=== PATIENT | male | born 1980 ===

== ENCOUNTER 2017-05-19 22:42 | Inpatient (IN) | payer SELFPAY ==
[~2017-05-19] VITALS: Ht 177.8 cm; Wt 75.3 kg
[2017-05-19] MEDS ORDERED: ONDANSETRON 4 MG/2 ML VIAL IV ONE (23:15)
[2017-05-19] MEDS ORDERED: MORPHINE SULFATE 2 MG/1 ML DISP.SYRIN IV ONE (23:15)
[2017-05-19] MEDS ORDERED: PANTOPRAZOLE SODIUM 40 MG VIAL IV ONE (23:15)
[2017-05-19] MEDS ORDERED: IV NORMAL SALINE 1000 ML BAG IV ONE (23:15)
[2017-05-19] MEDS ORDERED: ONDANSETRON 4 MG/2 ML VIAL ONE (23:42)
[2017-05-19] MEDS ORDERED: PANTOPRAZOLE SODIUM 40 MG VIAL ONE (23:42)
[2017-05-19] MEDS ORDERED: MORPHINE SULFATE 2 MG/1 ML DISP.SYRIN ONE (23:43)
[2017-05-19] MEDS ORDERED: METRONIDAZOLE 500 MG/NS 100 ML PIGGYBACK IV ONE (23:45)
[2017-05-19] MEDS ORDERED: LEVOFLOXACIN 750 MG/D5W 150 ML PIGGYBACK IV ONE (23:45)
[2017-05-19] MEDS ORDERED: VANCOMYCIN 1G/D5W 200 ML PIGGYBACK IV ONE (23:45)
[2017-05-19] MEDS ORDERED: METRONIDAZOLE 500 MG/NS 100ML 100 ML IV ONE (23:59)
[2017-05-20 00:03] LABS: BASOPHILS % (AUTO) 0.1 % (0.0-2.0); EOSINOPHILS % (AUTO) 0.1 % (0.0-7.0); HEMATOCRIT 27.7 % (40-50); HEMOGLOBIN 9.1 G/DL (14.0-18.0); LYMPHOCYTES # (AUTO) 0.4 K/UL (0.8-4.8); LYMPHOCYTES % (AUTO) 8.6 % (20.5-51.5); MEAN CORPUSCULAR HEMOGLOBIN 27.8 UUG (27.0-31.0); MEAN CORPUSCULAR HGB CONC 33 g/dL (32.0-37.0); MEAN CORPUSCULAR VOLUME 84.6 FL (82.0-92.0); MONOCYTES # (AUTO) 0.2 K/UL (0.1-1.30); MONOCYTES % (AUTO) 4.7 % (0.0-11.0); NEUTROPHILS # (AUTO) 4.2 K/UL (1.8-8.9); NEUTROPHILS % (AUTO) 86.5 % (38.5-71.5); PLATELET COUNT (AUTO) 399 K/UL (150-450); RED BLOOD CELL COUNT(AUTO) 3.28 MIL/UL (4.7-6.1); WHITE BLOOD COUNT (AUTO) 4.8 K/UL (4.0-11.2)
[2017-05-20 00:07] LABS: CREATININE 1.1 mg/dL (0.6-1.3); POTASSIUM 3.7 mmol/L (3.5-5.1)
[2017-05-20] MEDS ORDERED: HYDROMORPHONE 2 MG/1 ML DISP.SYRIN ONE ×6 (00:08→21:05)
[2017-05-20 00:13] LABS: BILIRUBIN,DIRECT 0.1 mg/dL (0.0-0.2); BILIRUBIN,TOTAL 0.2 mg/dL (0.2-1.0); TOTAL PROTEIN, SERUM 6.8 g/dL (6.4-8.2)
[2017-05-20] MEDS ORDERED: diphenhydrAMINE 50 MG/1 ML VIAL IV ONE ×2 (00:15→02:30)
[2017-05-20] MEDS ORDERED: HYDROMORPHONE 1 MG/1 ML DISP.SYRIN IV ONE ×5 (00:15→02:45)
[2017-05-20] MEDS ORDERED: ONDANSETRON 4 MG/2 ML VIAL IV ONE (00:15)
[2017-05-20] MEDS ORDERED: ONDANSETRON 4 MG/2 ML VIAL ONE (00:29)
[2017-05-20] MEDS ORDERED: VANCOMYCIN IV 200 ML ONE (00:39)
[2017-05-20 00:40] LABS: *BILIRUBIN,URIN NEGATIVE (NEGATIVE); *BLOOD, URINE NEGATIVE (NEGATIVE); *CLARITY,URINE CLEAR (CLEAR); *COLOR,URINE YELLOW (YELLOW); *KETONES,URINE NEGATIVE (NEGATIVE); *PROTEIN,URINE NEGATIVE (NEGATIVE); *UROBILINOGEN,URINE 0.2 E.U./dl (NORMAL); LEUKOCYTE ESTERASE ,URINE NEGATIVE (NEGATIVE); NITRITE, URINE NEGATIVE (NEGATIVE); UGLUCOSE NEGATIVE (NEGATIVE)
[2017-05-20 00:45] LABS: BACTERIA,URINE NONE SEEN /HPF (NONE SEEN); RBC,URINE 0-3 /HPF (0-3); SQUAMOUS EPITHELIAL CELL,UR NONE SEEN /HPF (NONE SEEN); WBC,URINE 0-3 /HPF (0-3)
[2017-05-20] MEDS ORDERED: NORMAL SALINE FLUSH 10 ML DISP.SYRIN ONE (01:16)
[2017-05-20] MEDS ORDERED: IOHEXOL 300MG/ML 100 ML INFUS..BTL ONE (01:16)
[2017-05-20] MEDS ORDERED: IV NORMAL SALINE 250 ML IV ONE (01:16)
[2017-05-20] MEDS ORDERED: diphenhydrAMINE 50 MG/1 ML VIAL ONE (02:21)
[2017-05-20] MEDS ORDERED: IV NORMAL SALINE 1000 ML BAG IV ONE (02:30)
[2017-05-20] MEDS ORDERED: LEVOFLOXACIN 750MG/D5W 150 ML IV ONE (02:35)
--- NOTE | 2017-05-20 03:15 | NUR ---
CALL PLACED TO MOISES, HARRISON OSULLIVAN N.P. VETERINARY TECHNICIAN INSTRUCTOR.
[2017-05-20] MEDS ORDERED: ACETAMINOPHEN 325 MG TABLET PO PRN (03:30)
[2017-05-20] MEDS ORDERED: Z GUARD REMEDY PASTE 57 GM TUBE TOP PRN (03:30)
[2017-05-20] MEDS ORDERED: PIPERACILLIN/TAZOBACTAM/D5W 50 ML IV SCH (03:30)
[2017-05-20] MEDS ORDERED: MORPHINE SULFATE 2 MG/1 ML DISP.SYRIN IV PRN (03:30)
[2017-05-20] MEDS ORDERED: LORAZEPAM 2 MG/1 ML VIAL IV ONE (03:30)
[2017-05-20] MEDS ORDERED: MAGNESIUM HYDROXIDE 30 ML LIQUID UDC PO PRN (03:30)
[2017-05-20] MEDS ORDERED: LORAZEPAM 2 MG/1 ML VIAL ONE (03:38)
--- NOTE | 2017-05-20 03:42 | NUR ---
Pt. admitted to [facility] , under care of HARRISON OSULLIVAN N.P. Belongs List completed.
--- NOTE | 2017-05-20 04:15 | NUR ---
PT RECEIVED FROM ED VIA [facility]. A/OX4. ABLE TO MAKE NEEDS KNOWN. V/S STABLE. IN NO ACUTE DISTRESS. PT C/O OF ABDOMINAL PAIN 02/19 AT THIS TIME. IV INTACT/PATENT. ORIENTED TO ROOM. SAFETY MEASURE IMPLEMENTED. CALL LIGHT WITHIN REACH.
[2017-05-20] MEDS: IV 1/2NS 1000 ML 1,000 ML IV PRN ×2 (04:46→17:08)
[2017-05-20] MEDS ORDERED: MORPHINE SULFATE 2 MG/1 ML DISP.SYRIN ONE (05:21)
[2017-05-20 06:00] VITALS: BP 144/98
[2017-05-20] MEDS ORDERED: PIPERACILLIN SODIUM/TAZO 3.375 GM VIAL ONE (06:56)
--- NOTE | 2017-05-20 07:00 | NUR ---
END OF SHIFT NOTES. PT IN STABLE CONDITION. PAIN MANAGED. IVF INFUSING. IV ABX INFUSED. ENDORSED PT REQUEST FOR DIL AND BENADRYL. ENDORSED NEED FOR MRSA WOUND SWAB. ALL NEEDS ATTENDED. SAFETY MAINTAINED. CALL LIGHT WITHIN REACH.
--- NOTE | 2017-05-20 08:00 | NUR ---
AWAKE ALERT COOPERATE WELL EAT BREAKFAST MOD AMT STATE MORPHINE DOES NOT HELP TO RELIEF PAIN DR YANG WAS INFORM AND NEW ORDER IN CHART
[2017-05-20] MEDS ORDERED: HYDROMORPHONE 1 MG/1 ML DISP.SYRIN IV PRN (08:30)
--- NOTE | 2017-05-20 09:00 | NUR ---
C/O ABD WOUND PAIN MED PRN GIVEN ORDER AND WILL DO WOUND CARE DSG CHANGE LATER
[2017-05-20] MEDS: diphenhydrAMINE 50 MG/1 ML VIAL IV PRN ×4 (09:04→21:00)
[2017-05-20] MEDS: HYDROMORPHONE 2 MG/1 ML DISP.SYRIN IV PRN ×3 (09:06→17:16)
--- NOTE | 2017-05-20 11:40 | NUR ---
WOUND CULTURE SENT TO LAB REFUSED TO CLEAN AND APPLY DSG AT OPEN ABD WOUND
[2017-05-20 11:49] VITALS: BP 125/79
--- NOTE | 2017-05-20 12:20 | NUR ---
Clinical pharmacy note: Vancomycin pharmacy to dose Subjective: to start vanco in this 37 yo male for abscess/cellulitis. Patient received vanc 1gm IVPB in ED on 05/20 at 0030 Objective: height 5' 10'' weight 166 lb BUN 20 Scr 1.1 Wbc 4.8 temp 97.9 Assessment/Plan Will start vancomycin 1250 mg IVPB q11 hr fpr predicted vanco trough level of 17.8 mcg/ml at steady state. 1st dose is due today at 1200. Plan to draw vanco trough level before 4th dose (level not yet ordered). Will monitor renal function & adjust the dose if needed. Will follow
[2017-05-20] MEDS: ONDANSETRON 4 MG/2 ML VIAL IV PRN (12:25)
[2017-05-20] MEDS: VANCOMYCIN IV 1,250 MG in IV DEXTROSE 5% 500 ML IV SCH ×2 (12:28→22:12)
--- NOTE | 2017-05-20 12:55 | NUR ---
DR YANG WAS CALL AND NOTIFY THAT PATIENT REQUEST ATIVAN PRN FOR ANXIETY AND NEW ORDER IN CHART
[2017-05-20] MEDS: PIPERACILLIN/TAZOBACTAM/D5W 50 ML IV SCH ×2 (13:02→18:14)
[2017-05-20] MEDS: LORAZEPAM 1 MG TABLET PO PRN ×2 (15:01→22:12)
[2017-05-20 15:19] VITALS: BP 119/72
[2017-05-20] MEDS ORDERED: MORPHINE SULFATE 2 MG/1 ML DISP.SYRIN IV ONE (16:00)
--- NOTE | 2017-05-20 16:00 | NUR ---
DR YANG WAS NOTIFY OF PATIENT STATE PAIN MEDICINE DOES NOT HELEF TO RELIEF PAIN AT THIS TIME THEN HE ORDER ONE TIME MORPHINE TO GIVE
--- NOTE | 2017-05-20 17:30 | NUR ---
RESTING STABLE HEMODYNAMIC STATUS SAFETY MEASURE PROVIDED CALL LIGHT WITHIN REACH
--- NOTE | 2017-05-20 19:40 | NUR ---
PT RECEIVED IN BED, AWAKE. A/OX4. ABLE TO MAKE NEEDS KNOWN. V/S STABLE. IN NO ACUTE DISTRESS. C/O 04/22 PAIN ON RIGHT LOWER ABDOMEN. IVF INFUSING. SAFETY MEASURES IMPLEMENTED. CALL LIGHT WITHIN REACH.
[2017-05-20 20:00] VITALS: BP 119/70
[2017-05-20] MEDS: HYDROMORPHONE 1 MG/1 ML DISP.SYRIN IV PRN (21:02)
[2017-05-21] MEDS: HYDROMORPHONE 1 MG/1 ML DISP.SYRIN IV PRN ×2 (00:03→05:56)
[2017-05-21] MEDS ORDERED: HYDROMORPHONE 2 MG/1 ML DISP.SYRIN ONE (00:03)
[2017-05-21] MEDS: diphenhydrAMINE 50 MG/1 ML VIAL IV PRN ×5 (00:56→23:58)
[2017-05-21] MEDS: PIPERACILLIN/TAZOBACTAM/D5W 50 ML IV SCH ×4 (00:56→18:04)
[2017-05-21] MEDS ORDERED: HYDROMORPHONE 1 MG/1 ML DISP.SYRIN ONE (04:56)
--- NOTE | 2017-05-21 04:56 | NUR ---
DILAUDID PULLED FROM PYXIS AND WASTED ORDERED. GIVEN TO PRIMARY NURSE TO ADMINISTER. SEE eMAR.
[2017-05-21] MEDS: LORAZEPAM 1 MG TABLET PO PRN ×3 (05:45→21:32)
[2017-05-21 06:17] LABS: EOSINOPHILS # (AUTO) 0.1 K/uL (0.0-0.7); EOSINOPHILS % (AUTO) 2.4 % (0.0-7.0); HEMATOCRIT 30.9 % (40-50); HEMOGLOBIN 10.1 G/DL (14.0-18.0); LYMPHOCYTES # (AUTO) 2.5 K/UL (0.8-4.8); LYMPHOCYTES % (AUTO) 51.3 % (20.5-51.5); MEAN CORPUSCULAR HEMOGLOBIN 27.9 UUG (27.0-31.0); MEAN CORPUSCULAR HGB CONC 33 g/dL (32.0-37.0); MEAN CORPUSCULAR VOLUME 85.2 FL (82.0-92.0); MONOCYTES # (AUTO) 0.6 K/UL (0.1-1.30); MONOCYTES % (AUTO) 12.6 % (0.0-11.0); NEUTROPHILS # (AUTO) 1.6 K/UL (1.8-8.9); NEUTROPHILS % (AUTO) 33.7 % (38.5-71.5); PLATELET COUNT (AUTO) 373 K/UL (150-450); RED BLOOD CELL COUNT(AUTO) 3.62 MIL/UL (4.7-6.1); WHITE BLOOD COUNT (AUTO) 4.8 K/UL (4.0-11.2)
[2017-05-21 06:19] VITALS: BP 122/85
--- NOTE | 2017-05-21 06:20 | NUR ---
END OF SHIFT NOTES. PT SLEPT INTERMITTENTLY THROUGHOUT SHIFT. IN STABLE CONDITION. IVF INFUSING. IV ABX INFUSED. PAIN MANAGED. AGITATION/RESTLESSNESS MANAGED. ALL NEEDS ATTENDED. SAFETY MAINTAINED. CALL LIGHT WITHIN REACH.
[2017-05-21 06:24] LABS: CREATININE 1.2 mg/dL (0.6-1.3); POTASSIUM 3.3 mmol/L (3.5-5.1)
[2017-05-21 06:25] LABS: MAGNESIUM 1.6 mg/dL (1.8-2.4); PHOSPHOROUS 4.5 mg/dL (2.5-4.9)
[2017-05-21 06:33] LABS: THYROID STIMULATING HORMONE 2.31 mIU/mL (0.358-3.740)
--- NOTE | 2017-05-21 07:32 | NUR ---
PT RECEIVED IN BED, AWAKE. A/OX4. ABLE TO MAKE NEEDS KNOWN. V/S STABLE. IN NO ACUTE DISTRESS. C/O 10 PAIN ON RIGHT LOWER ABDOMEN. SAFETY MEASURES IMPLEMENTED. CALL LIGHT WITHIN REACH.
[2017-05-21] MEDS: HYDROMORPHONE 2 MG/1 ML DISP.SYRIN IV PRN ×4 (09:00→23:09)
[2017-05-21] MEDS: VANCOMYCIN IV 1,250 MG in IV DEXTROSE 5% 500 ML IV SCH ×2 (10:10→20:47)
[2017-05-21] MEDS ORDERED: POTASSIUM CHLORIDE 20 MEQ TAB.PRT.SR PO ONE (10:15)
[2017-05-21] MEDS ORDERED: MAGNESIUM SULFATE/D5W 100 ML IV SCH (10:15)
[2017-05-21] MEDS ORDERED: POTASSIUM CHLORIDE 50 ML IV SCH (10:15)
[2017-05-21] MEDS: ONDANSETRON 4 MG/2 ML VIAL IV PRN (10:28)
[2017-05-21 11:29] VITALS: BP 116/75
[2017-05-21] MEDS: IV 1/2NS 1000 ML 1,000 ML IV PRN (14:10)
--- NOTE | 2017-05-21 14:10 | NUR ---
WOUND CARE CONSULT: PT PRESENTS WITH ABDOMINAL WOUND, PRESENT ON ADMISSION WHICH PT STATES IS A SURGICAL I&D THAT WAS DONE IN [place]. PT STATES HAD ABSCESS IN [place]. SOME REDNESS AND INDURATION NOTED. PT REFUSED TO HAVE DEPTH OF WOUND CHECKED WITH APPLICATOR DUE TO DISCOMFORT. PT STATES HAS ANXIETY. RECOMMEND SURGICAL CONSULT. RECOMMENDATIONS MADE FOR WOUND CARE. DISCUSSED WITH NURSING STAFF. SURGICAL CONSULT CALLED TO DR CHRISTIANSEN BY Kendall CARRERA NP. WILL SEE PRN. APRMAR IN AGREEMENT WITH PLAN OF CARE. Addendum: 05/21/17 at 1413 by MARY OLEARY RN Amended: Links added.
[2017-05-21] MEDS: SILVER SULFADIAZINE 1% CREAM 50 GM TP SCH ×2 (14:15→21:00)
--- NOTE | 2017-05-21 14:41 | NUR ---
Clinical pharmacy note: Vancomycin pharmacy to dose Subjective: to start vanco in this 37 yo male for abscess/cellulitis. Patient received vanc 1gm IVPB in ED on 05/20 at 0030 Objective: height 5' 10'' weight 166 lb BUN 21 Scr 1.2 Wbc 4.8 temp 98.4 Assessment/Plan Continue vancomycin 1250mg ivpb q11h will order trough prior to tomorrow morning dose
--- NOTE | 2017-05-21 15:00 | NUR ---
C/O ABD WOUND PAIN MED PRN GIVEN ORDER AND WILL DO WOUND CARE DSG CHANGE LATER
[2017-05-21 15:44] VITALS: BP 107/74
--- NOTE | 2017-05-21 19:30 | NUR ---
Pt a/o x 4. C/o of abdominal discomfort but able to tolerate at this time. States he wants Benadryl at 1999. No active bleeding to affected abdominal wound. Awaiting surgical consult at this time. Call light placed within reach. IV antibiotics to be given 2099. Continue to monitor.
[2017-05-21 20:27] VITALS: BP 120/82
[2017-05-21] MEDS: HYDROCODONE/APAP 5-325MG TABLET PO PRN (21:32)
--- NOTE | 2017-05-21 23:14 | NUR ---
Pt c/o pain to abdominal area. Requests another PRN Dilaudid and states 8/10 pain. New order received from MD to have pt NPO. Pt made aware. Continue to monitor.
--- NOTE | 2017-05-22 00:14 | NUR ---
Pt seeking more pain medication. V/s noted 115/61 P-75 T-98.5 O2 sat 95%. States he is not receiving pain medication enough. MD notes aware of pt's drug seeking behavior. Continue to monitor. Charge nurse aware.
[2017-05-22] MEDS: PIPERACILLIN/TAZOBACTAM/D5W 50 ML IV SCH ×4 (00:48→19:06)
[2017-05-22] MEDS: HYDROMORPHONE 2 MG/1 ML DISP.SYRIN IV PRN ×7 (02:00→22:52)
[2017-05-22] MEDS: HYDROCODONE/APAP 5-325MG TABLET PO PRN ×2 (02:47→20:54)
[2017-05-22] MEDS: diphenhydrAMINE 50 MG/1 ML VIAL IV PRN ×5 (03:58→23:55)
--- NOTE | 2017-05-22 06:03 | NUR ---
Pt in room alert seeking continuous and frequent pain medication and antianxiety medication. Reminded pt of current NPO status per GI MD. Pt made aware of next available Dilauded 1mg 0800. Continue to monitor. Call light within reach.
[2017-05-22 06:19] VITALS: BP 122/82
[2017-05-22] MEDS: IV 1/2NS 1000 ML 1,000 ML IV PRN (07:03)
--- NOTE | 2017-05-22 07:15 | NUR ---
RECEIVED REPORT FROM SUPERVISOR RECLAMATION NURSE, PATIENT IN BED AWAKE, REPORTING PAIN. BED IN LOW POSITION, SIDE RAILS UP X2.
[2017-05-22 09:00] LABS: BASOPHILS % (AUTO) 0.1 % (0.0-2.0); EOSINOPHILS # (AUTO) 0.4 K/uL (0.0-0.7); HEMOGLOBIN 10.7 g/dL (12.5-16.3); LYMPHOCYTES # (AUTO) 2.3 K/uL (20.0-40.0); MEAN CORPUSCULAR HEMOGLOBIN 28.9 uug (23.8-33.4); MEAN CORPUSCULAR HGB CONC 34 g/dL (32.5-36.3); MEAN CORPUSCULAR VOLUME 84.3 fL (73.0-96.2); MONOCYTES # (AUTO) 0.7 K/uL (2.0-10.0); MONOCYTES % (AUTO) 12.7 % (0.0-11.0); NEUTROPHILS # (AUTO) 1.9 K/uL (1.8-8.9); NEUTROPHILS % (AUTO) 36.2 % (38.5-71.5); PLATELET COUNT (AUTO) 334 K/uL (152-348); RED BLOOD CELL COUNT(AUTO) 3.68 MIL/uL (4.06-5.63); WHITE BLOOD COUNT (AUTO) 5.3 K/uL (3.6-10.2)
[2017-05-22] MEDS: SILVER SULFADIAZINE 1% CREAM 50 GM TP SCH ×2 (09:00→20:47)
[2017-05-22 09:15] LABS: BILIRUBIN,TOTAL 0.3 mg/dL (0.2-1.0); CREATININE 0.9 mg/dL (0.6-1.3); MAGNESIUM 2.2 mg/dL (1.8-2.4); POTASSIUM 4.1 mmol/L (3.5-5.1); TOTAL PROTEIN, SERUM 6.4 g/dL (6.4-8.2)
[2017-05-22] MEDS: VANCOMYCIN IV 1,250 MG in IV DEXTROSE 5% 500 ML IV SCH ×2 (10:02→20:47)
[2017-05-22 10:09] LABS: IRON, SERUM 36 ug/dL (50-175)
[2017-05-22] MEDS: FERROUS SULFATE 325 MG TABEC PO SCH (11:00)
[2017-05-22 11:29] VITALS: BP 121/83
--- NOTE | 2017-05-22 12:00 | NUR ---
PATIENT WENT TO GI LAB FOR EGD.
[2017-05-22 12:13] LABS: *OCCULT BLOOD STOOL POSITIVE (NEGATIVE)
[2017-05-22] MEDS ORDERED: MEPERIDINE 25 MG/1 ML DISP.SYRIN ONE ×2 (13:00→13:16)
--- NOTE | 2017-05-22 13:30 | NUR ---
PATIENT RETURNED FROM GI LAB, ORDERED A CLEAR LIQUID DIET.
[2017-05-22] MEDS: ONDANSETRON 4 MG/2 ML VIAL IV PRN (13:51)
--- NOTE | 2017-05-22 14:42 | NUR ---
Clinical pharmacy note: Vancomycin pharmacy to dose Subjective: to continue vanco in this 37 yo male for abscess/cellulitis. Objective: height 5' 10'' weight 166 lb BUN 12 Scr 0.9 Wbc 5.3 temp 98.4 Vanco trough level: 13.7 Assessment/Plan Will change dose from vancomycin 1250 mg IVPB q11 hr to vanco 1250mg IVPB q10h for predicted vanco trough level of 15.5 mcg/ml at steady state. 1st dose is due today at 1000. Plan to draw vanco trough level before 4th dose (ordered for 05/23 at 1530). Will review the level & adjust the dose if needed. Will follow
[2017-05-22 15:30] VITALS: BP 106/62
--- NOTE | 2017-05-22 19:35 | NUR ---
PT RECEIVED IN BED, AWAKE. A/OX4. ABLE TO MAKE NEEDS KNOWN. V/S STABLE. IN NO ACUTE DISTRESS. NO C/O PAIN AT THIS TIME. IV ABX INFUSING. IV INTACT AND PATENT. SAFETY MEASURES IMPLEMENTED. CALL LIGHT WITHIN REACH.
--- NOTE | 2017-05-22 19:48 | NUR ---
PATIENT IN PLEASANT MOOD, BED IN LOW POSITION, SIDE RAILS UP X2. PAIN IS UNDER CONTROL. NO EVIDENCE OF DISTRESS NOTED AT THIS TIME.
[2017-05-22 20:00] VITALS: BP 102/65
[2017-05-22] MEDS ORDERED: LIDOCAINE HCL 1% 20 ML VIAL MC ONE (20:51)
[2017-05-22] MEDS ORDERED: diphenhydrAMINE 50 MG/1 ML VIAL MC ONE (20:51)
[2017-05-22] MEDS ORDERED: SIMETHICONE 40 MG/0.6 ML 30 ML BOTTLE MC ONE (20:51)
[2017-05-22] MEDS ORDERED: PROPOFOL 200 MG/20 ML BOTTLE IV ONE (20:51)
[2017-05-22] MEDS ORDERED: IV NORMAL SALINE 1000 ML BAG IV ONE (20:51)
[2017-05-22] MEDS: LORAZEPAM 1 MG TABLET PO PRN (20:54)
--- NOTE | 2017-05-22 21:00 | NUR ---
PT REFUSED WOUND TX. PT STATES, "I WILL CHANGE THE DRESSING AND HAVE THEM DO THE WOUND TX IN THE MORNING AFTER I HAVE SHOWERED." PT DRESSING C/D/I AT THIS TIME. WILL CONT TO MONITOR.
[2017-05-23] MEDS: HYDROMORPHONE 2 MG/1 ML DISP.SYRIN IV PRN ×5 (03:10→18:54)
[2017-05-23] MEDS: IV 1/2NS 1000 ML 1,000 ML IV PRN (03:12)
[2017-05-23] MEDS: diphenhydrAMINE 50 MG/1 ML VIAL IV PRN ×5 (04:06→19:57)
[2017-05-23 05:02] VITALS: BP 112/66
[2017-05-23] MEDS: HYDROCODONE/APAP 5-325MG TABLET PO PRN ×3 (05:16→20:08)
[2017-05-23] MEDS: VANCOMYCIN IV 1,250 MG in IV DEXTROSE 5% 500 ML IV SCH (05:16)
[2017-05-23] MEDS: LORAZEPAM 1 MG TABLET PO PRN ×3 (05:16→20:06)
[2017-05-23 06:24] LABS: BASOPHILS % (AUTO) 0.1 % (0.0-2.0); EOSINOPHILS # (AUTO) 0.6 K/uL (0.0-0.7); EOSINOPHILS % (AUTO) 10.5 % (0.0-7.0); HEMATOCRIT 29.5 % (36.7-47.1); LYMPHOCYTES # (AUTO) 2.3 K/uL (20.0-40.0); LYMPHOCYTES % (AUTO) 42.3 % (20.5-51.5); MEAN CORPUSCULAR HEMOGLOBIN 28.5 uug (23.8-33.4); MEAN CORPUSCULAR HGB CONC 34 g/dL (32.5-36.3); MEAN CORPUSCULAR VOLUME 84.2 fL (73.0-96.2); MONOCYTES # (AUTO) 0.6 K/uL (2.0-10.0); MONOCYTES % (AUTO) 10.9 % (0.0-11.0); NEUTROPHILS % (AUTO) 36.2 % (38.5-71.5); PLATELET COUNT (AUTO) 318 K/uL (152-348); WHITE BLOOD COUNT (AUTO) 5.5 K/uL (3.6-10.2)
[2017-05-23 06:48] LABS: BILIRUBIN,TOTAL 0.2 mg/dL (0.2-1.0); CREATININE 1.1 mg/dL (0.6-1.3); MAGNESIUM 2.1 mg/dL (1.8-2.4); PHOSPHOROUS 3.7 mg/dL (2.5-4.9); POTASSIUM 3.4 mmol/L (3.5-5.1); TOTAL PROTEIN, SERUM 6.2 g/dL (6.4-8.2)
--- NOTE | 2017-05-23 06:50 | NUR ---
END OF SHIFT NOTES. PT SLEPT INTERMITTENTLY THROUGHOUT SHIFT. IN STABLE CONDITION. PAIN MEDICATION ADMINISTERED ORDERED. PAIN MANAGED. IVF INFUSING. IV ABX INFUSED. ALL NEEDS ATTENDED. SAFETY MAINTAINED. CALL LIGHT WITHIN REACH.
[2017-05-23] MEDS: PIPERACILLIN/TAZOBACTAM/D5W 50 ML IV SCH ×3 (07:04→12:04)
[2017-05-23] MEDS: FERROUS SULFATE 325 MG TABEC PO SCH (08:19)
[2017-05-23] MEDS: SILVER SULFADIAZINE 1% CREAM 50 GM TP SCH (08:31)
[2017-05-23] MEDS ORDERED: POTASSIUM CHLORIDE 20 MEQ TAB.PRT.SR PO ONE (10:45)
[2017-05-23 11:09] VITALS: BP 111/70
[2017-05-23] MEDS ORDERED: FERR325T28 PO (13:24)
[2017-05-23] MEDS ORDERED: ACET325T53 PO (13:24)
[2017-05-23] MEDS ORDERED: Silver Sulfadiazine 1% Cream TP (13:24)
[2017-05-23] MEDS ORDERED: OXYC10TA49 PO (13:24)
[2017-05-23] MEDS ORDERED: CEPH500C2 PO (13:24)
[2017-05-23] MEDS ORDERED: DIPH25CA83 PO (13:30)
[2017-05-23] MEDS ORDERED: CEPHALEXIN MONOHYDRATE 500 MG CAPSULE PO SCH (14:00)
[2017-05-23 15:14] VITALS: BP 110/68
--- NOTE | 2017-05-23 16:00 | NUR ---
Pt awake, alert, and remains complaining of pain to abdominal area. Pt just received Dilauded and Benadryl recently. Pt to be discharged around 8:30 pm. Pt and mother aware. Continue to monitor. Call light placed within reach.
--- NOTE | 2017-05-23 20:45 | NUR ---
Pt in room with v/s WNL. No acute distress noted. Dilauded given 0 and Benadryl given 1999. Pt refuses to sign documents required for discharge. Copies of medication prescriptions given. States he wants to leave facility at this time. All belongings were taken by pt. Hep lock on left thumb was removed.
== END 2017-05-23 20:52 | disposition home or self-care (01) | DRG 378 ==
LOC: ER 22:48 → MED 05-20 03:56
PROVIDERS: ADMIT Internal Medicine; ATTEND Internal Medicine
PROC: 0DB78ZX Excision of Stomach, Pylorus, Via Natural or Artificial Opening Endoscopic, Diagnostic (ICD-10-PCS; principal; 2017-05-22 12:30)
PROC: 0DB48ZX Excision of Esophagogastric Junction, Via Natural or Artificial Opening Endoscopic, Diagnostic (ICD-10-PCS; principal; 2017-05-22 12:30)
DX: K29.01 Acute gastritis with bleeding (principal); L02.211 Cutaneous abscess of abdominal wall; E83.42 Hypomagnesemia; E83.51 Hypocalcemia; E88.09 Other disorders of plasma-protein metabolism, not elsewhere classified; K59.00 Constipation, unspecified; Z86.14 Personal history of Methicillin resistant Staphylococcus aureus infection; N20.0 Calculus of kidney; E87.6 Hypokalemia; Z76.5 Malingerer [conscious simulation]; T81.4XXD Infection following a procedure, subsequent encounter; Z91.09 Other allergy status, other than to drugs and biological substances; R19.7 Diarrhea, unspecified; R73.9 Hyperglycemia, unspecified; D50.9 Iron deficiency anemia, unspecified
CPT/HCPCS: 36415; 71010; 83550; 83690; 83735; 84100; 84443; 85025; 85730; 86850; 86900; 86901; 87070; A4217; A4663; C9113; J1170; J1200; J1956; J2060; J2175; J2270; J2405; J2543; J3370; J3475; J3490; J7030; J7050; J7060; Q9967